=== PATIENT | male | born 1960 | race Caucasian/White ===

== ENCOUNTER 2017-10-07 15:41 | Emergency (ER) | payer MEDICARE, MEDICAID ==
--- NOTE | 2017-10-07 15:47 | Emergency Department Record ---
History of Present Illness - General Chief Complaint: Suicide attempt Stated Complaint: CUT WRIST W/RAZOR BLADE Time Seen by Provider: 10/07/17 15:46 Source: Patient Mode of Arrival: Ambulatory Limitations: No limitations - History of Present Illness Initial Comments: The patient is here due to cutting his L wrist due to feeling depressed and wanting to hurt himself. He states he has been very depressed recently due to his mother dying about 6 months ago. The patient denies any overdose or taking any drugs or alcohol. He states the depression has been worse the last month or so and he also is having problems with his roomate. MD Complaint: Feels depressed Onset/Timin -: Days(s) - Related Data Home Medications Medication Instructions Recorded Confirmed Last Taken Fentanyl [Duragesic] 75 mcg TD Q72H 10/07/17 10/07/17 1 Day Ago ~10/06/17 Hydrocodone/Acetaminophen [[place] 1 tab PO Q6H PRN 10/07/17 10/07/17 1 Day Ago 10mg/325mg] ~10/06/17 Levothyroxine Sodium [Synthroid] 150 mcg PO DAILY 10/07/17 10/07/17 Unknown Tramadol HCl [Ultram] 50 mg PO Q4H 10/07/17 10/07/17 1 Day Ago ~10/06/17 Previous Rx's Medication Instructions Recorded Cephalexin [Keflex] 500 mg PO QID #28 cap 10/07/17 Allergies Allergy/AdvReac Type Severity Reaction Status Date / Time No Known Drug Allergies Allergy Verified 10/07/17 16:01 Review of Systems Constitutional: Denies: Chills, Fever Eyes: Denies: Eye discharge ENT: Denies: Congestion Respiratory: Denies: Cough, Dyspnea Physical Exam - General General Appearance: Alert, Oriented x3, Cooperative, No acute distress - Head Head exam: Atraumatic, Normocephalic, Normal inspection - Eye Eye exam: Normal appearance, PERRL - Neck Neck exam: Normal inspection, Full ROM. negative: Tenderness - Respiratory Respiratory exam: Normal lung sounds bilaterally. negative: Respiratory distress - Cardiovascular Cardiovascular Exam: Regular rate, Normal rhythm, Normal heart sounds - GI/Abdominal GI/Abdominal exam: Soft, Normal bowel sounds. negative: Tenderness - Extremities Extremities exam: Full ROM, Normal capillary refill, Tenderness, Other (There is a 2 cm oblique laceration to the anterior L wrist. The L wrist and hand is NVI with normal sensation and pulses.). negative: Normal inspection Image of Hand: 1 - 2 cm laceration. - Neurological Neurological exam: Alert. negative: Motor sensory deficit Course - Reevaluation(s) Reevaluation #1: Procedure note: The L wrist lac was anesth. with 2 cc's lido 1% with epi. The wound was explored and no tendon was visualized. The lac was lavaged with sterile saline and closed with 3 4.0 nylon sutures. There were no complications. 10/07/17 16:30 Reevaluation #2: The patient is doing very well at this time. He denies any new pain or discomfort. We are waiting on psych hospital placement at this time. The patient is aware of the need to keep the arm dry for 2 days and watch for signs of infection. He is to have the sutures removed in 10 days. 10/07/17 18:42 Reevaluation #3: The patient is still waiting for Psych hospital placement. Due to shift change his care will be turned over to Dr. Adhikari. 10/07/17 19:06 Medical Decision Making - Lab Data Result diagrams: 10/07/17 16:12 10/07/17 16:12 Disposition Disposition: Transfer Clinical Impression: Suicidal ideation Arm laceration Qualifiers: Encounter type: initial encounter Laterality: left Qualified Code(s): S41.112A - Laceration without foreign body of left upper arm, initial encounter Disposition: Psychiatric Hospital Transfer To: [facility] Reason For Transfer: Psych Accepting Physician: To be determined. Time Discussed w/Accepting Physician: 19:22 Condition: (2) Stable Instructions: Laceration (ED), Depression (ED) Additional Instructions: Please keep the arm dry for 2 days then no soaking or swimming. Please take the Keflex as directed. Have the sutures removed in 10 days. Return to the ER for any signs of infection. Prescriptions: Cephalexin [Keflex] 500 mg PO QID #28 cap Forms: Patient Portal Access Time of Disposition: 18:45 Quality - Quality Measures Quality Measures: N/A - Blood Pressure Screening View Details: Yes Does Patient Have Any of the Following: No Blood Pressure Classification: Hypertensive Reading Systolic Measurement: 149 Diastolic Measurement: 111 Screening for High Blood Pressure: < Pre-Hypertensive BP, F/U Documented > [ G8950] Pre-Hypertensive Follow-up Interventions: Referral to alternative/primary care provider.
[2017-10-07] MEDS ORDERED: Diph,Pert(Acell),Tet Vac 0.5 ML SYR IM ONE (15:58)
[2017-10-07 16:21] LABS: BASO % 0.1 % (0-6); EOS % 0.3 % (0-6); GRAN % 79.3 % (47-80); HEMATOCRIT 38.6 % (42.0-52.0); HEMOGLOBIN 13.7 gm/dl (14.0-18.0); LYMPH % 14.2 % (16-45); MEAN CORPUSCULAR HGB CONC 35.5 g/dl (32-36); MEAN PLATELET VOLUME 10.1 fl (7.4-10.4); MONO % 6.1 % (0-9); PLATELET COUNT 206 K/uL (130-400); RED BLOOD COUNT 4.54 M/uL (4.40-5.70); RED CELL DISTRIBUTION WIDTH 12.3 % (11.5-14.5)
[2017-10-07 16:23] LABS: MEAN CORPUSCULAR HEMOGLOBIN 30.1 pg (27-33)
[2017-10-07 16:41] LABS: BLOOD UREA NITROGEN 17 mg/dL (6-20); CREATININE 0.9 mg/dL (0.7-1.2); EST GLOMERULAR FILTRATION RATE > 60 mL/min
[2017-10-07 16:42] LABS: TOTAL PROTEIN 7.5 g/dL (6.6-8.7)
[2017-10-07 16:44] LABS: GLUCOSE,RANDOM 115 mg/dL (74-109)
[2017-10-07 16:46] LABS: ALB/GLOB RATIO 1.9 (1.1-1.8); ALBUMIN 4.9 g/dL (4.0-5.0); ALT/SGPT 31 U/L (<41); AST/SGOT 47 U/L (10.0-50.0)
[2017-10-07 16:47] LABS: ACETAMINOPHEN < 5.0 ug/mL (10.0-30.0); ALKALINE PHOSPHATASE 58 U/L (40-129); SALICYLATE < 0.3 mg/dL (2.8-20)
[2017-10-07 16:49] LABS: AMPHETAMINE SCREEN URINE NOT DETECTED; BARBITURATE SCREEN URINE NOT DETECTED; BENZODIAZEPINE SCREEN URINE NOT DETECTED; COCAINE SCREEN URINE NOT DETECTED; METHADONE SCREEN URINE NOT DETECTED; METHAMPHETAMINE SCREEN NOT DETECTED; OPIATE SCREEN URINE DETECTED; OXYCODONE SCREEN URINE DETECTED; PHENCYCLIDINE SCREEN URINE NOT DETECTED; PROPOXYPHENE SCREEN URINE NOT DETECTED; THC SCREEN URINE DETECTED; TRICYCLIC ANTIDEPRESSANT SCRN NOT DETECTED
[2017-10-07 17:25] LABS: URINE APPEARANCE CLOUDY; URINE BILIRUBIN SMALL (NEGATIVE); URINE BLOOD TRACE-I (NEGATIVE); URINE COLOR YELLOW; URINE GLUCOSE (UA) NEGATIVE (NEGATIVE); URINE KETONE NEGATIVE (NEGATIVE); URINE LEUKOCYTE ESTERASE NEGATIVE (NEGATIVE); URINE NITRITE NEGATIVE (NEGATIVE); URINE PROTEIN TRACE (NEGATIVE); URINE UROBILINOGEN 0.2 E.U./dL (0.20 - 1.00)
[2017-10-07 17:32] LABS: URINE AMORPHOUS SEDIMENT 2+; URINE BACTERIA NONE SEEN; URINE EPITHELIAL CELLS NONE SEEN (FEW); URINE WBC NONE SEEN (0-2/hpf)
--- NOTE | 2017-10-08 03:03 | Emergency Department Record ---
History of Present Illness - General Chief Complaint: Suicide attempt Stated Complaint: CUT WRIST W/RAZOR BLADE Time Seen by Provider: 10/07/17 15:46 Source: Patient Mode of Arrival: Ambulatory Travel/Exposure to [place] Within 21 Days of Symptoms: No - History of Present Illness Onset/Timin -: Days(s) Associated Psychiatric Symptoms: Suicidal ideation History of same: No Quality: Resolved prior to arrival Improves With: None Context: Significant life stressor Associated Symptoms: Denies other symptoms Treatments Prior to Arrival: None If Self Harm: Has acted on plan, Self-inflicted trauma - Wilder Coma Scale Eye Response: (4) Open spontaneously Motor Response: (6) Obeys commands Verbal Response: (5) Oriented Wilder Total: 15 - Related Data Home Medications Medication Instructions Recorded Confirmed Last Taken Fentanyl [Duragesic] 75 mcg TD Q72H 10/07/17 10/07/17 1 Day Ago ~10/06/17 Hydrocodone/Acetaminophen [[place] 1 tab PO Q6H PRN 10/07/17 10/07/17 1 Day Ago 10mg/325mg] ~10/06/17 Levothyroxine Sodium [Synthroid] 150 mcg PO DAILY 10/07/17 10/07/17 Unknown Tramadol HCl [Ultram] 50 mg PO Q4H 10/07/17 10/07/17 1 Day Ago ~10/06/17 Previous Rx's Medication Instructions Recorded Cephalexin [Keflex] 500 mg PO QID #28 cap 10/07/17 Allergies Allergy/AdvReac Type Severity Reaction Status Date / Time No Known Drug Allergies Allergy Verified 10/07/17 16:01 Review of Systems Constitutional: Denies: Chills, Fever Eyes: Denies: Eye discharge ENT: Denies: Congestion Respiratory: Denies: Cough, Dyspnea Past Medical History - SOCIAL HISTORY Smoking Status: Never smoker Alcohol Use: None Drug Use: None, Rare Drug Use Detail:: Marijuana - RESPIRATORY Hx Respiratory Disorders: No - CARDIOVASCULAR Hx Cardio Disorders: No - NEURO Hx Neuro Disorders: Yes Comment:: [place] 2 years ago, balance issues - GI Hx GI Disorders: No - Hx Genitourinary Disorders: No - ENDOCRINE Hx Diabetes: No Hx Thyroid Disease: Yes - MUSCULOSKELETAL Hx Arthritis: Yes Comment:: balance - PSYCH Hx Anxiety: Yes Hx Depression: Yes Comment:: lost mother 04/2017 - HEMATOLOGY/ONCOLOGY Hx Hematology/Oncology Disorders: No Family Medical History Any Significant Family History?: Yes Physical Exam - General Limitations: No limitations Course Vital Signs 10/07/17 10/07/17 10/07/17 15:51 17:17 19:10 Temperature 98.2 F Pulse Rate 88 Pulse Rate [ 68 80 Pulse Ox Probe] Respiratory 18 18 14 Rate Blood Pressure 149/111 Blood Pressure 135/90 131/91 [Right Arm] Pulse Ox 97 96 97 10/08/17 01:42 Temperature 98.6 F Pulse Rate Pulse Rate [ 85 Pulse Ox Probe] Respiratory 16 Rate Blood Pressure Blood Pressure 100/65 [Right Arm] Pulse Ox 99 - Reevaluation(s) Reevaluation #1: 10/08/17 03:01 patient has been accepted to [facility] for psychiatric evaluation, will initiate transfer at this time. Medical Decision Making - Lab Data Result diagrams: 10/07/17 16:12 10/07/17 16:12 Lab Results 10/07/17 10/07/17 10/07/17 Range/Units 16:12 16:12 16:35 WBC 7.0 (4.2-12.2) K/uL RBC 4.54 (4.40-5.70) M/uL Hgb 13.7 L (14.0-18.0) gm/dl Hct 38.6 L (42.0-52.0) % MCV 85.0 (81-97) fl MCH 30.1 (27-33) pg MCHC 35.5 (32-36) g/dl RDW 12.3 (11.5-14.5) % Plt Count 206 (130-400) K/uL MPV 10.1 (7.4-10.4) fl Gran % 79.3 (47-80) % Lymphocytes % 14.2 L (16-45) % Monocytes % 6.1 (0-9) % Eosinophils % 0.3 (0-6) % Basophils % 0.1 (0-6) % Sodium 141 (136-145) mmol/L Potassium 3.8 (3.4-4.5) mmol/L Chloride 100 (98-107) mmol/L Carbon Dioxide 24.0 (22-29) mmol/L Anion Gap 17.0 H (7-16) BUN 17 (6-20) mg/dL Creatinine 0.9 (0.7-1.2) mg/dL Estimated GFR > 60 mL/min Random Glucose 115 H (74-109) mg/dL Calcium 9.7 (8.6-10.0) mg/dL Total Bilirubin 0.90 (0.2-1.0) mg/dL AST 47 (10.0-50.0) U/L ALT 31 (<41) U/L Alkaline Phosphatase 58 (40-129) U/L Total Protein 7.5 (6.6-8.7) g/dL Albumin 4.9 (4.0-5.0) g/dL Globulin 2.6 (1.4-4.8) gm/dL Albumin/Globulin Ratio 1.9 H (1.1-1.8) TSH (0.270-4.20) uIU/mL Urine Color Urine Appearance Urine pH (5.0-8.0) Ur Specific [place] (1.002-1.030) Urine Protein (NEGATIVE) Urine Glucose (UA) (NEGATIVE) Urine Ketones (NEGATIVE) Urine Blood (NEGATIVE) Urine Nitrite (NEGATIVE) Urine Bilirubin (NEGATIVE) Urine Urobilinogen (0.20 - 1.00) E.U./dL Ur Leukocyte Esterase (NEGATIVE) Urine RBC (NONE SEEN) Urine WBC (0-2/hpf) Ur Epithelial Cells (FEW) Amorphous Sediment Urine Bacteria Salicylates < 0.3 L (2.8-20) mg/dL Urine Opiates Screen Detected Ur Oxycodone Screen Detected Urine Methadone Screen Not detected Ur Propoxyphene Screen Not detected Acetaminophen < 5.0 L (10.0-30.0) ug/mL Ur Barbituates Screen Not detected Ur Tricyclics Screen Not detected Ur Phencyclidine Scrn Not detected Ur Amphetamine Screen Not detected U Methamphetamines Scrn Not detected U Benzodiazepines Scrn Not detected Urine Cocaine Screen Not detected Urine Cannabis Screen Detected Ethyl Alcohol 0.010 (0-0.010) g/dL 10/07/17 10/08/17 Range/Units 16:40 01:21 WBC (4.2-12.2) K/uL RBC (4.40-5.70) M/uL Hgb (14.0-18.0) gm/dl Hct (42.0-52.0) % MCV (81-97) fl MCH (27-33) pg MCHC (32-36) g/dl RDW (11.5-14.5) % Plt Count (130-400) K/uL MPV (7.4-10.4) fl Gran % (47-80) % Lymphocytes % (16-45) % Monocytes % (0-9) % Eosinophils % (0-6) % Basophils % (0-6) % Sodium (136-145) mmol/L Potassium (3.4-4.5) mmol/L Chloride (98-107) mmol/L Carbon Dioxide (22-29) mmol/L Anion Gap (7-16) BUN (6-20) mg/dL Creatinine (0.7-1.2) mg/dL Estimated GFR mL/min Random Glucose (74-109) mg/dL Calcium (8.6-10.0) mg/dL Total Bilirubin (0.2-1.0) mg/dL AST (10.0-50.0) U/L ALT (<41) U/L Alkaline Phosphatase (40-129) U/L Total Protein (6.6-8.7) g/dL Albumin (4.0-5.0) g/dL Globulin (1.4-4.8) gm/dL Albumin/Globulin Ratio (1.1-1.8) TSH 6.11 H (0.270-4.20) uIU/mL Urine Color Yellow Urine Appearance Cloudy Urine pH 5.5 (5.0-8.0) Ur Specific [place] >= 1.030 (1.002-1.030) Urine Protein Trace H (NEGATIVE) Urine Glucose (UA) Negative (NEGATIVE) Urine Ketones Negative (NEGATIVE) Urine Blood Trace-i (NEGATIVE) Urine Nitrite Negative (NEGATIVE) Urine Bilirubin Small H (NEGATIVE) Urine Urobilinogen 0.2 (0.20 - 1.00) E.U./dL Ur Leukocyte Esterase Negative (NEGATIVE) Urine RBC 3 - 6 (NONE SEEN) Urine WBC None seen (0-2/hpf) Ur Epithelial Cells None seen (FEW) Amorphous Sediment 2+ Urine Bacteria None seen Salicylates (2.8-20) mg/dL Urine Opiates Screen Ur Oxycodone Screen Urine Methadone Screen Ur Propoxyphene Screen Acetaminophen (10.0-30.0) ug/mL Ur Barbituates Screen Ur Tricyclics Screen Ur Phencyclidine Scrn Ur Amphetamine Screen U Methamphetamines Scrn U Benzodiazepines Scrn Urine Cocaine Screen Urine Cannabis Screen Ethyl Alcohol (0-0.010) g/dL Disposition Disposition: Transfer Clinical Impression: Suicidal ideation Arm laceration Qualifiers: Encounter type: initial encounter Laterality: left Qualified Code(s): S41.112A - Laceration without foreign body of left upper arm, initial encounter Disposition: Psychiatric Hospital Transfer To: [facility] Reason For Transfer: Psychiatric evaluation Accepting Physician: Lucien Time Discussed w/Accepting Physician: 03:02 Condition: (2) Stable Instructions: Laceration (ED), Depression (ED) Additional Instructions: Please keep the arm dry for 2 days then no soaking or swimming. Please take the Keflex as directed. Have the sutures removed in 10 days. Return to the ER for any signs of infection. Prescriptions: Cephalexin [Keflex] 500 mg PO QID #28 cap Forms: Patient Portal Access Time of Disposition: 03:02 Quality - Quality Measures Quality Measures: N/A - Blood Pressure Screening Does Patient Have Any of the Following: No Blood Pressure Classification: Hypertensive Reading Systolic Measurement: 149 Diastolic Measurement: 111 Screening for High Blood Pressure: < First Hypertensive BP, F/U Documented > [ G8950] First Hypertensive Follow-up Interventions: Referral to alternative/primary care provider.
== END 2017-10-08 03:45 ==
LOC: ER 15:41
DX: S61.512A Laceration without foreign body of left wrist, initial encounter (principal); X78.8XXA Intentional self-harm by other sharp object, initial encounter; F32.9 Major depressive disorder, single episode, unspecified; F17.220 Nicotine dependence, chewing tobacco, uncomplicated; Z79.899 Other long term (current) drug therapy
CPT/HCPCS: 12001 ×2; 99285 ×2; 96372; 85025; 80053; 81001; 84443; 80305; G0480 ×3; 80320; 80329; 90715

== ENCOUNTER 2018-03-31 12:03 | Emergency (ER) | payer MEDICARE, MEDICAID ==
--- NOTE | 2018-03-31 12:30 | Emergency Department Record ---
History of Present Illness - General Chief Complaint: Recheck - Other Stated Complaint: OUT OF MEDICATION Time Seen by Provider: 03/31/18 12:12 Source: Patient Mode of arrival: Ambulatory Limitations: No limitations - History of Present Illness Initial Comments: pts dr retired and now pt is running out of his narcotics that he's taken for years. he has been on norco, ultram and fentanyl patches for 10 years. he has an appt w dr de la rosa on apr 10. he has chronic pain in his shoulder MD Complaint: Medication refill request Onset/Timin Returns Today for: Request for prescription Symptoms Since Prior Visit: No new symptoms - Related Data Previous Rx's Medication Instructions Recorded Hydrocodone/Acetaminophen [[place] 1 tab PO Q4HR PRN #15 tab 03/31/18 10mg/325mg] Allergies Allergy/AdvReac Type Severity Reaction Status Date / Time No Known Drug Allergies Allergy Verified 10/07/17 16:01 Travel Screening - Travel/Exposure Within Last 30 Days Have you traveled within the last 30 days?: No - Travel/Exposure Within Last Year Have you traveled outside the [place] in the last year?: No - Additonal Travel Details Have you been exposed to anyone with a communicable illness?: No - Travel Symptoms Symptom Screening: None Review of Systems Reviewed: No additional complaints except as noted below Constitutional: Reports: As per HPI. Denies: Chills, Fever, Malaise, Night sweats, Weakness, Weight change Eyes: Reports: As per HPI. Denies: Eye discharge, Eye pain, Photophobia, Vision change ENT: Reports: As per HPI. Denies: Congestion, Dental pain, Ear pain, Epistaxis , Hearing loss, Throat pain Respiratory: Reports: As per HPI. Denies: Cough, Dyspnea, Hemoptysis, Stridor, Wheezes Cardiovascular: Reports: As per HPI. Denies: Arrhythmia, Chest pain, Dyspnea on exertion, Edema, Murmurs, Orthopnea, Palpitations, Paroxysmal nocturnal dyspnea, Rheumatic Fever, Syncope Endocrine: Reports: As per HPI. Denies: Fatigue, Heat or cold intolerance, Polydipsia, Polyuria Gastrointestinal: Reports: As per HPI. Denies: Abdominal pain, Constipation, Diarrhea, Hematemesis, Hematochezia, Melena, Nausea, Vomiting Genitourinary: Reports: As per HPI. Denies: Dysuria, Frequency, Hematuria, Incontinence, Retention, Testicular pain, Testicular mass, Urgency Musculoskeletal: Reports: As per HPI. Denies: Arthralgia, Back pain, Gout, Joint swelling, Myalgia, Neck pain Skin: Reports: As per HPI. Denies: Bruising, Change in color, Change in hair/ nails, Lesions, Pruritus, Rash Neurological: Reports: As per HPI. Denies: Abnormal gait, Confusion, Headache, Numbness, Paresthesias, Seizure, Tingling, Tremors, Vertigo, Weakness Psychiatric: Reports: As per HPI. Denies: Anxiety, Auditory hallucinations, Depression, Homicidal thoughts, Suicidal thoughts, Visual hallucinations Hematological/Lymphatic: Reports: As per HPI. Denies: Anemia, Blood Clots, Easy bleeding, Easy bruising, Swollen glands Past Medical History - SOCIAL HISTORY Smoking Status: Never smoker Alcohol Use: None Drug Use: None - RESPIRATORY Hx Respiratory Disorders: No - CARDIOVASCULAR Hx Cardio Disorders: No - NEURO Hx Neuro Disorders: Yes Comment:: [place] 2 years ago, balance issues - GI Hx GI Disorders: No - Hx Genitourinary Disorders: No - ENDOCRINE Hx Diabetes: No Hx Thyroid Disease: Yes - MUSCULOSKELETAL Hx Arthritis: Yes Hx Fibromyalgia: Yes Comment:: balance - PSYCH Hx Anxiety: Yes Hx Depression: Yes Comment:: lost mother 04/2017 - HEMATOLOGY/ONCOLOGY Hx Hematology/Oncology Disorders: No Family Medical History Any Significant Family History?: No Physical Exam - General General Appearance: Alert, Oriented x3, Cooperative, Mild distress - Head Head exam: Normal inspection - Eye Eye exam: Normal appearance, PERRL, EOMI Pupils: Normal accommodation - ENT ENT exam: Normal exam, Mucous membranes moist, Normal external ear exam, Normal orophraynx Ear exam: Normal external inspection. negative: External canal tenderness Nasal Exam: Normal inspection. negative: Discharge, Sinus tenderness Mouth exam: Normal external inspection, Tongue normal Teeth exam: Normal inspection. negative: Dental caries Throat exam: Normal inspection. negative: Tonsillar erythema, Tonsillar exudate - Neck Neck exam: Normal inspection, Full ROM. negative: Tenderness - Respiratory Respiratory exam: Normal lung sounds bilaterally. negative: Respiratory distress - Cardiovascular Cardiovascular Exam: Regular rate, Normal rhythm, Normal heart sounds - GI/Abdominal GI/Abdominal exam: Soft, Normal bowel sounds. negative: Tenderness - Rectal Rectal exam: Deferred - exam: Deferred - Extremities Extremities exam: Normal inspection, Full ROM, Normal capillary refill. negative: Tenderness - Back Back exam: Reports: Normal inspection, Full ROM. Denies: Muscle spasm, Rash noted, Tenderness - Neurological Neurological exam: Alert, CN II-XII intact, Normal gait, Oriented X3 - Psychiatric Psychiatric exam: Normal affect, Normal mood - Skin Skin exam: Dry, Intact, Normal color, Warm Course Vital Signs 03/31/18 12:12 Temperature 97.8 F Pulse Rate 87 Respiratory 18 Rate Blood Pressure 150/108 Pulse Ox 96 - Reevaluation(s) Reevaluation #1: 03/31/18 12:30 it was explained to pt that we dont manage chronic pain in the ED. i do sympathize with pts plight and i dont want him to go into withdrawal so i will give him a few for the next few days Disposition Disposition: Discharge Clinical Impression: Chronic pain Qualifiers: Chronic pain type: other chronic pain Qualified Code(s): G89.29 - Other chronic pain Disposition: Home, Self-Care Condition: (1) Good Instructions: Chronic Pain (ED) Additional Instructions: follow up with dr de la rosa. return sooner if worse Prescriptions: Hydrocodone/Acetaminophen [[place] 10mg/325mg] 1 tab PO Q4HR PRN #15 tab PRN Reason: Pain - General Quality - Quality Measures Quality Measures: N/A - Blood Pressure Screening Does Patient Have Any of the Following: No Blood Pressure Classification: Hypertensive Reading Systolic Measurement: 150 Diastolic Measurement: 108 Screening for High Blood Pressure: < First Hypertensive BP, F/U Documented > [ G8950] First Hypertensive Follow-up Interventions: Follow-up with rescreen GT 1 day and LT 4 weeks.
== END 2018-03-31 12:46 | disposition home or self-care (01) ==
LOC: ER 12:03
DX: G89.29 Other chronic pain (principal); M25.511 Pain in right shoulder
CPT/HCPCS: 99282

== ENCOUNTER 2018-10-08 11:12 | Emergency (ER) | payer MEDICARE, MEDICAID ==
[2018-10-08] MEDS ORDERED: IPRATROPIUM/ALBUTEROL (0.5MG/3MG) NEB INH ONE (11:16)
[2018-10-08] MEDS ORDERED: ASPIRIN 81 MG CHEWABLE TABLET PO ONE (11:17)
[2018-10-08] MEDS ORDERED: 0.9 % SODIUM CHLORIDE 1000ML 1,000 ML IV PRN (11:17)
[2018-10-08 11:34] LABS: BASO % 0.2 % (0-6); EOS % 0.5 % (0-6); GRAN % 77.6 % (47-80); HEMOGLOBIN 15.5 gm/dl (14.0-18.0); LYMPH % 15.9 % (16-45); MEAN CELL VOLUME 85.2 fl (81-97); MEAN CORPUSCULAR HEMOGLOBIN 29.4 pg (27-33); MEAN CORPUSCULAR HGB CONC 34.4 g/dl (32-36); MEAN PLATELET VOLUME 10.3 fl (7.4-10.4); MONO % 5.8 % (0-9); PLATELET COUNT 272 K/uL (130-400); RED BLOOD COUNT 5.28 M/uL (4.40-5.70); RED CELL DISTRIBUTION WIDTH 13.3 % (11.5-14.5); WHITE BLOOD COUNT W/O DIFF 12.5 K/uL (4.2-12.2)
[2018-10-08 11:43] LABS: BLOOD UREA NITROGEN 16 mg/dL (6-20); CREATININE 0.8 mg/dL (0.7-1.2); EST GLOMERULAR FILTRATION RATE > 60 mL/min
[2018-10-08 11:46] LABS: GLUCOSE,RANDOM 110 mg/dL (74-109)
[2018-10-08 12:02] LABS: PARTIAL THROMBOPLASTIN TIME 25.9 SECONDS (24.5-39.1)
[2018-10-08] MEDS ORDERED: KETOROLAC 30 MG/ML VIAL IVP ONE (12:09)
--- NOTE | 2018-10-08 12:10 | Emergency Department Record ---
History of Present Illness - General Chief Complaint: Shortness of breath Stated Complaint: william Time Seen by Provider: 10/08/18 11:17 Source: Patient, RN notes reviewed Mode of Arrival: EMS - History of Present Illness Initial Comments: 6 hours of right sided chest pain and sob and wheezing and no falls Onset/Timin -: Hour(s) Radiation: Back Severity: Severe Severity scale (1-10): 8 Quality: Sharp Consistency: Constant Improves With: Nothing Worsens With: Coughing, Exertion, Movement Associated Symptoms: Abdominal pain, Chest pain, Cough Treatments Prior to Arrival: None - Related Data Previous Rx's Medication Instructions Recorded Hydrocodone/Acetaminophen [Greenleaf 1 each PO Q4HR #18 tablet 10/08/18 5-325 Tablet] Allergies Allergy/AdvReac Type Severity Reaction Status Date / Time No Known Drug Allergies Allergy Unverified 07/01/18 16:18 Travel Screening - Travel/Exposure Within Last 30 Days Have you traveled within the last 30 days?: No - Travel/Exposure Within Last Year Have you traveled outside the [place] in the last year?: No - Additonal Travel Details Have you been exposed to anyone with a communicable illness?: No - Travel Symptoms Symptom Screening: None Review of Systems Reviewed: No additional complaints except as noted below Constitutional: Reports: As per HPI. Denies: Chills, Fever, Malaise, Night sweats, Weakness, Weight change Eyes: Reports: As per HPI. Denies: Eye discharge, Eye pain, Photophobia, Vision change ENT: Reports: As per HPI. Denies: Congestion, Dental pain, Ear pain, Epistaxis , Hearing loss, Throat pain Respiratory: Reports: As per HPI, Cough, Dyspnea. Denies: Hemoptysis, Stridor, Wheezes Cardiovascular: Reports: As per HPI. Denies: Arrhythmia, Chest pain, Dyspnea on exertion, Edema, Murmurs, Orthopnea, Palpitations, Paroxysmal nocturnal dyspnea, Rheumatic Fever, Syncope Endocrine: Reports: As per HPI. Denies: Fatigue, Heat or cold intolerance, Polydipsia, Polyuria Gastrointestinal: Reports: As per HPI. Denies: Abdominal pain, Constipation, Diarrhea, Hematemesis, Hematochezia, Melena, Nausea, Vomiting Genitourinary: Reports: As per HPI. Denies: Dysuria, Frequency, Hematuria, Incontinence, Retention, Testicular pain, Testicular mass, Urgency Musculoskeletal: Reports: As per HPI. Denies: Arthralgia, Back pain, Gout, Joint swelling, Myalgia, Neck pain Skin: Reports: As per HPI. Denies: Bruising, Change in color, Change in hair/ nails, Lesions, Pruritus, Rash Neurological: Reports: As per HPI. Denies: Abnormal gait, Confusion, Headache, Numbness, Paresthesias, Seizure, Tingling, Tremors, Vertigo, Weakness Psychiatric: Reports: As per HPI. Denies: Anxiety, Auditory hallucinations, Depression, Homicidal thoughts, Suicidal thoughts, Visual hallucinations Hematological/Lymphatic: Reports: As per HPI. Denies: Anemia, Blood Clots, Easy bleeding, Easy bruising, Swollen glands Past Medical History - SOCIAL HISTORY Smoking Status: Current every day smoker Alcohol Use: Rare Drug Use: None - RESPIRATORY Hx Respiratory Disorders: No - CARDIOVASCULAR Hx Cardio Disorders: No - NEURO Hx Neuro Disorders: Yes Comment:: [place] 2 years ago, balance issues - GI Hx GI Disorders: No - Hx Genitourinary Disorders: No - ENDOCRINE Hx Diabetes: No Hx Thyroid Disease: Yes - MUSCULOSKELETAL Hx Arthritis: Yes Hx Fibromyalgia: Yes Comment:: balance - PSYCH Hx Anxiety: Yes Hx Depression: Yes Comment:: lost mother 04/2017 - HEMATOLOGY/ONCOLOGY Hx Hematology/Oncology Disorders: No Family Medical History Any Significant Family History?: Yes Hx Heart Disease: Grandparents Hx HTN: Grandparents Physical Exam - General General Appearance: Alert, Oriented x3, Cooperative, No acute distress - Head Head exam: Normal inspection - Eye Eye exam: Normal appearance, PERRL Pupils: Normal accommodation - ENT ENT exam: Normal exam, Mucous membranes moist, Normal external ear exam, Normal orophraynx, TM's normal bilaterally Ear exam: Normal external inspection. negative: External canal tenderness Nasal Exam: Normal inspection. negative: Discharge, Sinus tenderness Mouth exam: Normal external inspection, Tongue normal Teeth exam: Normal inspection. negative: Dental caries Throat exam: Normal inspection. negative: Tonsillar erythema, Tonsillar exudate - Neck Neck exam: Normal inspection, Full ROM. negative: Tenderness - Respiratory Respiratory exam: Normal lung sounds bilaterally. negative: Respiratory distress - Cardiovascular Cardiovascular Exam: Regular rate, Normal rhythm, Normal heart sounds, Other ( right chest wall pain) - GI/Abdominal GI/Abdominal exam: Soft, Normal bowel sounds. negative: Tenderness - Rectal Rectal exam: Deferred - exam: Deferred - Extremities Extremities exam: Normal inspection, Full ROM, Normal capillary refill. negative: Tenderness - Back Back exam: Reports: Normal inspection, Full ROM. Denies: Muscle spasm, Rash noted, Tenderness - Neurological Neurological exam: Alert, Normal gait, Oriented X3, Reflexes normal - Psychiatric Psychiatric exam: Normal affect, Normal mood - Skin Skin exam: Dry, Intact, Normal color, Warm Course Vital Signs 10/08/18 10/08/18 11:14 11:28 Temperature 98 F Pulse Rate 106 H Pulse Rate [ 97 H Pulse Ox Probe] Respiratory 22 Rate Blood Pressure 146/85 Blood Pressure 121/94 [Right Arm] Pulse Ox 96 93 L - Reevaluation(s) Reevaluation #1: after telling him the results of Ct scan he doesn't recall any trauma and the pain started at 4 am today. 10/08/18 13:57 10/08/18 14:08 Medical Decision Making - Data Complexity MDM Data: Labs Ordered and/or Reviewed (d dimer elevated), X-Ray Ordered and/or Reviewed (No PE ,rib fractures 7-10 anteriorly), EKG Ordered and/or Reviewed ( No acute changes ,NSR) - Lab Data Result diagrams: 10/08/18 11:00 10/08/18 11:00 Lab Results 10/08/18 10/08/18 10/08/18 Range/Units 11:00 11:00 11:00 WBC 12.5 H (4.2-12.2) K/uL RBC 5.28 (4.40-5.70) M/uL Hgb 15.5 (14.0-18.0) gm/dl Hct 45.0 (42.0-52.0) % MCV 85.2 (81-97) fl MCH 29.4 (27-33) pg MCHC 34.4 (32-36) g/dl RDW 13.3 (11.5-14.5) % Plt Count 272 (130-400) K/uL MPV 10.3 (7.4-10.4) fl Gran % 77.6 (47-80) % Lymphocytes % 15.9 L (16-45) % Monocytes % 5.8 (0-9) % Eosinophils % 0.5 (0-6) % Basophils % 0.2 (0-6) % APTT 25.9 (24.5-39.1) SECONDS D-Dimer 0.78 H (0-0.59) mg/L FEU Sodium 141 (136-145) mmol/L Potassium 4.3 (3.4-4.5) mmol/L Chloride 101 (98-107) mmol/L Carbon Dioxide 23.0 (22-29) mmol/L Anion Gap 17.0 H (7-16) BUN 16 (6-20) mg/dL Creatinine 0.8 (0.7-1.2) mg/dL Estimated GFR > 60 mL/min Random Glucose 110 H (74-109) mg/dL Calcium 9.1 (8.6-10.0) mg/dL Troponin T < 0.010 (0-0.010) ng/mL Disposition Clinical Impression: Ribs, multiple fractures Qualifiers: Encounter type: initial encounter Fracture type: closed Laterality: right Qualified Code(s): S22.41XA - Multiple fractures of ribs, right side, initial encounter for closed fracture Disposition: Home, Self-Care Condition: (1) Good Instructions: Rib Fracture (ED) Additional Instructions: follow up with Dr. Chauhan in 3-7 days deep breathing every 4 hours tomes 10 breaths Prescriptions: Hydrocodone/Acetaminophen [Greenleaf 5-325 Tablet] 1 each PO Q4HR #18 tablet Forms: Patient Portal Access Time of Disposition: 14:15 Quality - Quality Measures Quality Measures: N/A - Blood Pressure Screening Does Patient Have Any of the Following: No Blood Pressure Classification: Pre-Hypertensive BP Reading Systolic Measurement: 146 Diastolic Measurement: 85 Screening for High Blood Pressure: < Pre-Hypertensive BP, F/U Documented > [ [id number]] Pre-Hypertensive Follow-up Interventions: Referral to alternative/primary care provider.
--- NOTE | 2018-10-10 08:26 | CT ANGIOGRAM REPORT ---
EXAM: CT ANGIOGRAM OF THE CHEST HISTORY: CHEST PAIN, SHORTNESS OF BREATH. TECHNIQUE: CT angiogram of the chest was obtained with 71 ml Omnipaque 350 intravenous contrast. Additional maximum intensity projection images were created on an independent workstation. Comparison: None. FINDINGS: Adequate opacification of the pulmonary arteries. No filling defects are identified to suggest pulmonary embolism. No significant pericardial fluid collection. Coronary artery calcifications are noted. The thoracic aorta has normal course and caliber without evidence of aneurysm or dissection. No mediastinal, hilar or axillary lymphadenopathy. Mild primarily linear opacities in the posterior aspects of the right and left lower lobes as well as the lingula, most suggestive of atelectasis. Mildly prominent posterior subpleural fat bilaterally, of uncertain significance. No pleural effusion or pneumothorax. Incidental 4 mm noncalcified right middle lobe nodule (series 3 image 77). Low attenuation of the visualized hepatic parenchyma suggesting steatosis. Acute nondisplaced fractures of anterior right ribs seven through ten. IMPRESSION: 1. NO EVIDENCE OF PULMONARY EMBOLISM OR OTHER ACUTE INTRATHORACIC PROCESS. 2. ACUTE NONDISPLACED FRACTURES OF RIGHT RIBS SEVEN THROUGH TEN. 3. CORONARY ARTERY CALCIFICATIONS. 4. HEPATIC STEATOSIS. 5. NONCALCIFIED 4 MM RIGHT MIDDLE LOBE NODULE. A CT OF THE CHEST MAY BE OBTAINED IN TWELVE MONTHS TO ASSESS FOR STABILITY. JOB NUMBER: [id number] [facility]
== END 2018-10-08 14:49 | disposition home or self-care (01) ==
LOC: ER 11:12
DX: S22.41XA Multiple fractures of ribs, right side, initial encounter for closed fracture (principal); R06.02 Shortness of breath; R06.2 Wheezing; R79.89 Other specified abnormal findings of blood chemistry; R05 Cough; X58.XXXA Exposure to other specified factors, initial encounter; F17.210 Nicotine dependence, cigarettes, uncomplicated
CPT/HCPCS: 71275; 80048; 84484; 85025; 85379; 85730; 93005; 93010; 96374; 99284; J1885